=== PATIENT | female | born 1995 | race Caucasian/White ===

== ENCOUNTER 2021-06-29 11:35 | Emergency (ER) | payer MEDICAID, SELFPAY ==
[~2021-06-29] VITALS: Ht 154.9 cm; Wt 53.7 kg
[2021-06-29 11:44] VITALS: BP 106/67
--- NOTE | 2021-06-29 11:56 | NUR ---
PATIENT WALKED BACK FROM TRIAGE WITH CHIEF C/O LEFT ARM ABSCESS X1 WEEK. PATIENT DRAINED AND REPORTS "LOTS OF DRAINAGE." DIME SIZE HOLE NOTED ON LEFT ARM ABOUT MIDWAY UP, NOT ACTIVELY DRAINING, ERYTHEMA AROUND AREA. PATIENT A&OX4, NADN, CALL LIGHT WITHIN REACH.
--- NOTE | 2021-06-29 12:03 | NUR ---
[facility]PA AT BEDSIDE FOR EVALUATION.
--- NOTE | 2021-06-29 12:52 | NUR ---
Patient given discharge instructions and prescription and they have confirmed that they understand the instructions. Wound care supplies given to patient. Patient ambulatory with steady gait. NAD, all questions answered appropriately, denies additional needs at this time. No personal belongings left in room after discharge.
== END 2021-06-29 12:53 | disposition home or self-care (01) ==
LOC: ED 12:20
DX: L02.413 Cutaneous abscess of right upper limb (principal)
CPT/HCPCS: 10060; 99283